=== PATIENT | female | born 1990 | race Caucasian/White ===

== ENCOUNTER 2021-03-22 10:01 | Emergency (ER) | payer OTHER ==
[~2021-03-22] VITALS: Ht 162.6 cm; Wt 70.4 kg
[2021-03-22] MEDS ORDERED: IV NORMAL SALINE 1000ML BAG 1,000 ML IV SCH (10:30)
[2021-03-22 10:45] LABS: BASO % 0 % (0-3); EOS # 0.1 x10^3/uL (0.0-0.7); EOS % 1 % (0-3); HEMATOCRIT 42.7 % (36.0-47.0); HEMOGLOBIN 14.8 g/dL (12.0-15.5); LYMPH # 1.3 x10^3/uL (1.0-4.8); LYMPH % 19 % (24-48); MEAN CORPUSCULAR HEMOGLOBIN 31 pg (25-35); MEAN CORPUSCULAR HGB CONC 35 g/dL (31-37); MEAN CORPUSCULAR VOLUME 88 fL (79-100); MONO # 0.4 x10^3/uL (0.0-1.1); MONO % 6 % (0-9); NEUT # 5.2 x10^3/uL (1.8-7.7); NEUT % 75 % (31-73); PLATELET COUNT 287 x10^3/uL (140-400); RED BLOOD COUNT 4.84 x10^6/uL (3.50-5.40); RED CELL DISTRIBUTION WIDTH 12.8 % (11.5-14.5)
--- NOTE | 2021-03-22 10:46 | RAD ---
AP chest. HISTORY: Chest tightness AP view was taken of the chest. Lungs are clear. Heart is normal in size. There is no effusion. IMPRESSION: 1. No acute infiltrates. Electronically signed by: Cisco Rowe MD (03/22/2021 10:44 AM) [facility]
[2021-03-22 10:50] LABS: CALCIUM 8.9 mg/dL (8.5-10.1); CREATININE 0.8 mg/dL (0.6-1.0); GFR 83.7; POTASSIUM 3.7 mmol/L (3.5-5.1)
[2021-03-22 10:56] LABS: ALBUMIN 4.4 g/dL (3.4-5.0); ALBUMIN/GLOBULIN RATIO 1.5 (1.0-1.7); TOTAL BILIRUBIN 0.6 mg/dL (0.2-1.0); TOTAL PROTEIN 7.4 g/dL (6.4-8.2)
--- NOTE | 2021-03-22 11:00 | PHYS DOC ---
Past Medical History Past Surgical History: Appendectomy, Other Additional Past Surgical Histo: BREAST AUGMENTATION Smoking Status: Never Smoker Alcohol Use: Occasionally General Adult EDM: Chief Complaint: CHEST WALL PAIN HPI: HPI: Patient is a 31 year old female who presents with throat pain, headache, nausea, vomiting, chest tightness since yesterday. She is being currently treated with Ciprodex for otitis externa in the left ear which she also has a tube placed in that left ear for drainage. Patient is vaccinated for Covid. 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 She states is just a tightness in her chest. States she tried Tylenol and Tums but did not really help. She does not smoke. No other medical history. Review of Systems: Review of Systems: Constitutional: Denies fever or chills. [] Eyes: Denies change in visual acuity. [] HENT: + nasal congestion or +sore throat. [] Respiratory: Denies cough or shortness of breath. [] Cardiovascular: + chest pain or denies edema. [] GI: Denies abdominal pain, +nausea, +vomiting, denies bloody stools or diarrhea. [] : Denies dysuria. [] Musculoskeletal: Denies back pain or joint pain. +generalized bodyaches[] Integument: Denies rash. [] Neurologic: +headache, denies focal weakness or sensory changes. [] Endocrine: Denies polyuria or polydipsia. [] Lymphatic: Denies swollen glands. [] Psychiatric: Denies depression or anxiety. [] Heart Score: C/O Chest Pain: Yes HEART Score for Chest Pain: HEART Score for Chest Pain Response (Comments) Value History Slighlty/Non-Suspicious 0 ECG Normal 0 Age < 45 0 Risk Factors No Risk Factors 0 Troponin < Normal Limit 0 Total 0 Risk Factors: Risk Factors: DM, Current or recent (<one month) smoker, HTN, HLP, family history of CAD, obesity. Risk Scores: Score 0 - 3: 2.5% MACE over next 6 weeks - Discharge Home Score 4 - 6: 20.3% MACE over next 6 weeks - Admit for Clinical Observation Score 7 - 10: 72.7% MACE over next 6 weeks - Early Invasive Strategies Current Medications: Current Medications Medications (Trade) Dose Ordered Sig/Ej Start Time Stop Time Status Last Admin Dose Admin Sodium Chloride 1,000 ml @ 1,000 mls/hr Q1H 03/22/21 10:30 03/22/21 11:29 03/22/21 10:38 1,000 MLS/HR Allergies: Allergies: Allergies Coded Allergies Type Severity Reaction Last Updated Verified No Known Drug Allergies 03/22/21 No Physical Exam: PE: Constitutional: Well developed, well nourished, no acute distress, non-toxic appearance. [] HENT: Normocephalic, atraumatic, bilateral external ears normal, oropharynx moist, no oral exudates, nose normal. Throat red with exudates. Left ear otitis externa [] Eyes: PERRLA, EOMI, conjunctiva normal, no discharge. [] Neck: Normal range of motion, no tenderness, supple, no stridor. [] Cardiovascular:Heart rate regular rhythm, no murmur [] Lungs & Thorax: Bilateral breath sounds clear to auscultation [] Abdomen: Bowel sounds normal, soft, no tenderness, no masses, no pulsatile masses. [] Skin: Warm, dry, no erythema, no rash. [] Back: No tenderness, no CVA tenderness. [] Extremities: No tenderness, no cyanosis, no clubbing, ROM intact, no edema. [] Neurologic: Alert and oriented X 3, normal motor function, normal sensory function, no focal deficits noted. [] Psychologic: Affect normal, judgement normal, mood normal. [] Current Patient Data: Labs: Laboratory Tests Test 03/22/21 10:27 03/22/21 10:34 POC Urine HCG, Qualitative Hcg negative (Negative) White Blood Count 7.0 x10^3/uL (4.0-11.0) Red Blood Count 4.84 x10^6/uL (3.50-5.40) Hemoglobin 14.8 g/dL (12.0-15.5) Hematocrit 42.7 % (36.0-47.0) Mean Corpuscular Volume 88 fL (79-100) Mean Corpuscular Hemoglobin 31 pg (25-35) Mean Corpuscular Hemoglobin Concent 35 g/dL (31-37) Red Cell Distribution Width 12.8 % (11.5-14.5) Platelet Count 287 x10^3/uL (140-400) Neutrophils (%) (Auto) 75 % (31-73) H Lymphocytes (%) (Auto) 19 % (24-48) L Monocytes (%) (Auto) 6 % (0-9) Eosinophils (%) (Auto) 1 % (0-3) Basophils (%) (Auto) 0 % (0-3) Neutrophils # (Auto) 5.2 x10^3/uL (1.8-7.7) Lymphocytes # (Auto) 1.3 x10^3/uL (1.0-4.8) Monocytes # (Auto) 0.4 x10^3/uL (0.0-1.1) Eosinophils # (Auto) 0.1 x10^3/uL (0.0-0.7) Basophils # (Auto) 0.0 x10^3/uL (0.0-0.2) Sodium Level 138 mmol/L (136-145) Potassium Level 3.7 mmol/L (3.5-5.1) Chloride Level 102 mmol/L (98-107) Carbon Dioxide Level 27 mmol/L (21-32) Anion Gap 9 (6-14) Blood Urea Nitrogen 7 mg/dL (7-20) Creatinine 0.8 mg/dL (0.6-1.0) Estimated GFR (Cockcroft-Gault) 83.7 BUN/Creatinine Ratio 9 (6-20) Glucose Level 93 mg/dL (70-99) Calcium Level 8.9 mg/dL (8.5-10.1) Total Bilirubin Pending Aspartate Amino Transferase (AST) Pending Alanine Aminotransferase (ALT) Pending Alkaline Phosphatase Pending Total Protein Pending Albumin Pending Albumin/Globulin Ratio Pending Lipase Pending Laboratory Tests 03/22/21 10:34 Laboratory Tests 03/22/21 10:34 Vital Signs: Vital Signs Date Time Temp Pulse Resp B/P (MAP) Pulse Ox O2 Delivery O2 Flow Rate FiO2 03/22/21 10:02 97.9 78 16 172/91 100 Room Air 97.9 EKG: EK [address] Redman is sinus rhythm with a prolonged QT but no STEMI. [address] Redman as sinus rhythm and no STEMI Radiology/Procedures: Radiology/Procedures: [] Impression: [facility] [address] [place] [address] IMAGING REPORT Signed PATIENT: FAYE MCNEIL ACCOUNT: [id number] : 1990 LOCATION: ER AGE: 31 SEX: F EXAM STATUS: PRE ER ORD. PHYSICIAN: DEBBIE VIRAMONTES APRN REASON: chest tightness PROCEDURE: PORTABLE CHEST 1V AP chest. HISTORY: Chest tightness AP view was taken of the chest. Lungs are clear. Heart is normal in size. There is no effusion. IMPRESSION: 1. No acute infiltrates. Electronically signed by: Cisco Rwoe MD (03/22/2021 10:44 AM) [facility] DICTATED and SIGNED BY: CISCO ROWE MD DATE: 03/22/21 [id number] 0 Course & Med Decision Making: Course & Med Decision Making Pertinent Labs and Imaging studies reviewed. (See chart for details) COVID-19 CRITERIA: The patient was evaluated during the global COVID-19 pandemic, and that diagnosis was suspected/considered upon their initial presentation. Their evaluation, treatment and testing was consistent with current guidelines for patients who present with complaints or symptoms that may be related to COVID-19. See HPI. Alert and oriented x4. Ambulatory steady gait. Skin pink warm and dry. Throat is reddened with 1 exudate to the left side. No swollen lymph nodes. Lungs are clear all station all lobes. Vital signs within normal limits. Rapid Covid negative. Rapid strep negative. Chest x-ray is negative. Vital signs remain normal. Patient is given a dose of dexamethasone and a breathing treatment. Patient stable and to follow-up with her primary care provider. [] Dragon Disclaimer: Dragon Disclaimer: This electronic medical record was generated, in whole or in part, using a voice recognition dictation system. COVID-19 Patient Risks: Age 65 or older: No Sign of co-morbidity: No Exp to person + for COVID: No Exp to PUI: Yes Travel from affected area: No Lower respiratory symptoms: Yes Fever: No Other: Yes (sore throat, headache) PPE Use: Full PPE with N95 mask or PAPR: Yes Departure Departure Impression: Primary Impression: Chest tightness Additional Impressions: Headache Qualified Codes: R51.9 - Headache, unspecified Person under investigation for COVID-19 Sore throat Disposition: 01 HOME / SELF CARE / HOMELESS Condition: STABLE Patient Instructions: Chest Pain (Nonspecific), Chest Wall Pain, General Headache Without Cause, Sore Throat Additional Instructions: Follow-up with your primary care provider. Drink plenty of fluids. Take Tylenol or ibuprofen to help with your headaches. Use nasal sprays for any nasal congestion. May be try taking a allergy medication if not already to help with drainage. Scripts Albuterol Sulfate (PROAIR HFA INHALER) 8.5 Gm Hfa.aer.ad 1 PUFF INH PRN Q6HRS PRN for SHORTNESS OF BREATH, #1 EACH 0 Refills Prov: DEBBIE VIRAMONTES APRN 03/22/21 DEBBIE VIRAMONTES APRN Mar 22, 2021 11:00
[2021-03-22 11:18] LABS: BILIRUBIN,URINE NEGATIVE (NEG); CLARITY,URINE CLEAR; COLOR,URINE YELLOW; NITRITE,URINE NEGATIVE (NEG); PROTEIN,URINE NEGATIVE (NEG-TRACE); UROBILINOGEN,URINE 0.2 mg/dL (0.2 mg/dL)
[2021-03-22] MEDS ORDERED: DEXAMETHASONE 4 MG TABLET PO ONE (11:30)
[2021-03-22] MEDS ORDERED: ALBUTEROL SULFATE 2.5 MG/3 ML NEBU. NEB ONE (11:30)
[2021-03-22 11:45] LABS: BACTERIA,URINE MODERATE /HPF (0-FEW)
[2021-03-22] MEDS ORDERED: ALBU2.5V8 INH (11:45)
[2021-03-22 12:59] VITALS: BP 146/93
--- NOTE | 2021-03-22 15:53 | EKG ---
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
--- NOTE | 2021-03-22 16:58 | NUR ---
IP: Informed pt of negative covid test. Pt verbalized understanding.
--- NOTE | 2021-03-26 11:45 | EKG ---
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
== END 2021-03-22 13:09 | disposition home or self-care (01) ==
LOC: ER 10:01
DX: J02.9 Acute pharyngitis, unspecified (principal); R07.89 Other chest pain; R51.9 Headache, unspecified; Z20.822 Contact with and (suspected) exposure to COVID-19
CPT/HCPCS: 36415; 71045; 80053; 81001; 81025; 83690; 83880; 84484; 85025; 87070; 87086; 87426; 87880; 93005; 94640; 96360; 96361; 99285; J7030; J7613; U0003; U0005

== ENCOUNTER → 2021-07-11 | Day surgery (SDC) | payer OTHER ==
[~2021-07-11] VITALS: Ht 162.6 cm; Wt 68.6 kg
[~2021-07-11] MED LIST: ALBU2.5V8 INH; ALPR0.5T6 PO; BUPR300T92 PO; FAMO40TA57 PO
[2021-07-11 10:21] VITALS: BP 130/94
[2021-07-11 11:48] VITALS: BP 125/86
--- NOTE | 2021-07-15 18:06 | PATHOLOGY ---
[facility] Accession Number: [id number] . 01 Material submitted: . PART A: small bowel - SMALL BOWEL BIOPSY PART B: stomach - ANTRUM/BODY BIOPSY PART C: esophagus - DISTAL ESOPHAGUS BIOPSY. Modifiers: distal PART D: ileum - TERMINAL ILEUM BIOPSY PART E: colon - RIGHT COLON BIOPSY. Modifiers: right PART F: colon - LEFT COLON BIOPSY. Modifiers: left . 01 Clinical history: . GERD EGD, COLONOSCOPY . 02 Diagnosis: A. Small bowel biopsy: - No diagnostic abnormalities. . B. Gastric biopsy, gastric antrum/body: - Chronic gastritis, mild. . C. Esophageal biopsy, distal esophagus: - Reflux changes. . D. Small intestine mucosa, terminal ileum biopsy: - No diagnostic abnormalities. . E. Colonic mucosa, right colon biopsy: - No diagnostic abnormalities. . F. Colonic mucosa, left colon biopsies: - No diagnostic abnormalities. (JPM:[facility]; 07/15/2021) [facility] 07/15/2021 1716 Local . 02 Comment: Sections of the small bowel biopsy reveal segments of duodenal and small intestine mucosa. Where best oriented, mucosal villi show no sprue-like changes or significant inflammatory changes. . Sections of the gastric biopsy reveal segments of gastric antral and gastric body mucosa showing congestion and mild chronic inflammation. A properly controlled immunoperoxidase stain for Helicobacter is negative for Helicobacter organisms. . Sections of the distal esophagus biopsy reveal segments of hyperplastic squamous esophageal mucosa and gastric mucosa showing mild to moderate chronic inflammation. The findings are consistent with reflux changes. There is no evidence of Mcdowell's change, dysplasia, or malignancy. . Sections of the terminal ileum biopsy reveal small intestine mucosa containing a single mucosal-associated lymphoid aggregate. Where best oriented, the mucosal villi show no sprue-like changes or significant inflammatory changes. . Sections of the right colon and left colon biopsies reveal segments of colonic mucosa containing a few mucosal-associated lymphoid aggregates. There is no evidence of a chronic destructive colitis, lymphocytic colitis, or collagenous colitis. (JPM:[facility]; 07/15/2021) . Special stain performed: Immunoperoxidase stain for Helicobacter on B1 . Electronically signed: . Jermain Plascencia MD, Pathologist NPI- [id number] . 01 Gross description: . A. Received in formalin labeled "Jacqueline Hui small bowel biopsy" are multiple fragments of montero-brown soft tissue measuring in aggregate 0.9 x 0.5 x 0.3 cm. The specimen is submitted entirely in A1. . B. Received in formalin labeled "Jacqueline Hui antrum/body biopsy" are multiple fragments of montero-brown soft tissue measuring in aggregate 0.9 x 0.5 x 0.3 cm. The specimen is submitted entirely in B1. . C. Received in formalin labeled "Jacqueline Hui distal esophagus biopsy" are multiple fragments of montero-brown soft tissue measuring in aggregate 0.8 x 0.3 x 0.2 cm. The specimen is submitted entirely in C1. . D. Received in formalin labeled "Jacqueline Hui terminal ileum biopsy" are 2 fragments of montero-brown soft tissue measuring 0.5 x 0.4 x 0.3 cm and 0.4 x 0.3 x 0.2 cm. The specimen is submitted entirely in D1. . E. Received in formalin labeled "Jacqueline Hui right colon biopsy" are multiple fragments of montero-brown soft tissue measuring in aggregate 1.4 x 0.6 x 0.3 cm. The specimen is submitted entirely in E1. . F. Received in formalin labeled "Jacqueline Hui left colon biopsy" are multiple fragments of montero-brown soft tissue measuring in aggregate 0.8 x 0.3 x 0.2 cm. The specimen is submitted entirely in F1.([facility]; 07/12/2021) GZA/GZA 07/15/2021 1452 Local . 02 Pathologist provided ICD-10: K29.50, K21.00, Z12.11 . 02 CPT . 774674, 714310, 625536, 989941, 808063, [id number], [id number] Specimen Comment: A courtesy copy of this report has been sent to [phone], [phone] Specimen Comment: [id number] Specimen Comment: Report sent to / DR CHINCHILLA Performed at: [address], [place] [id number] MD Evgeny Gardner MD Phone: [phone] Performed at: [facility] [address] [place], [place] [id number] MD Jermain Plascencia MD Phone: [phone]
== END | disposition home or self-care (01) ==
LOC: ENDOS 09:35
PROVIDERS: ATTEND Internal Medicine Gastroenterology
DX: K62.5 Hemorrhage of anus and rectum (principal); K29.50 Unspecified chronic gastritis without bleeding; K21.00 Gastro-esophageal reflux disease with esophagitis, without bleeding; R12 Heartburn; R14.0 Abdominal distension (gaseous); K64.0 First degree hemorrhoids; K63.89 Other specified diseases of intestine; K31.89 Other diseases of stomach and duodenum; E78.00 Pure hypercholesterolemia, unspecified; F41.9 Anxiety disorder, unspecified; F32.9 Major depressive disorder, single episode, unspecified; Z98.890 Other specified postprocedural states; Z79.899 Other long term (current) drug therapy; Z72.89 Other problems related to lifestyle
CPT/HCPCS: 43239; 45380; 81025; 88305; 88342